=== PATIENT | male | born 1990 | race Caucasian/White ===

== ENCOUNTER 2017-05-01 19:00 | Emergency (ER) | payer SELFPAY ==
[~2017-05-01] VITALS: Ht 175.3 cm; Wt 90.9 kg
[2017-05-01 19:05] VITALS: TEMP 96.8
[2017-05-01 20:03] LABS: BASO # 0.1 (0.0-0.2); BASO % 0.7 % (0.0-2.0); EOS # 0.3 (0.0-0.7); EOS % 1.7 % (0-4.0); GRAN # 15.3 (1.4-6.5); GRAN % 83.1 % (42.2-75.2); HEMATOCRIT 49.9 % (42.0-52.0); HEMOGLOBIN 16.8 g/dl (13.5-18.0); LYMPH # 1.8 (1.2-3.4); LYMPH % 9.7 % (20.0-51.0); MEAN CELL VOLUME 92 fl (80.0-100.0); MEAN CORPUSCULAR HEMOGLOBIN 31 pg (27.0-31.0); MEAN CORPUSCULAR HGB CONC 34 g/dl (33.0-37.0); MEAN PLATELET VOLUME 10.6 fl (7.4-10.4); MONO # 0.8 (0.1-0.6); MONO % 4.1 % (1.7-9.3); PLATELET COUNT 282 K/mm3 (130-400); RED BLOOD COUNT 5.45 M/mm3 (4.20-5.60); REDCELL DISTRIBUTION WIDTH-CV 13.4 % (11.5-14.5)
[2017-05-01 20:12] LABS: ALANINE AMINOTRANSFERASE 33 U/L (21-72); ALBUMIN 4.8 gm/dL (3.5-5.0); ALKALINE PHOSPHATASE 66 U/L (50-136); ANION GAP 12 mmol/L (7-16); AST,SGOT 28 U/L (15-37); BILIRUBIN,TOTAL 1.2 mg/dL (0.0-1.0); BLOOD UREA NITROGEN 20 mg/dL (9-20); CALCIUM 9.4 mg/dL (8.4-10.2); CARBON DIOXIDE 25 mmol/L (22-30); CHLORIDE 103 mmol/L (98-107); CREATININE, serum 1.21 mg/dL (0.66-1.25); GLUCOSE 108 mg/dL (74-106); POTASSIUM 4.2 mmol/L (3.4-5.0); SODIUM 140 mmol/L (137-145); TOTAL PROTEIN 7.8 gm/dL (6.4-8.2)
[2017-05-01 20:16] LABS: ACETAMINOPHEN < 10 ug/mL (10-30); ALCOHOL(ethanol),MEDICAL < 10 mg/dL; SALICYLATE < 1.0 mg/dL
[2017-05-01 21:02] LABS: COLLECTION METHOD CLEAN CATCH
[2017-05-01 21:10] LABS: MUCOUS Present /lpf; PH 5 (5-8); URINE APPEARANCE Clear; URINE BACTERIA Rare /hpf; URINE BILIRUBIN Negative (NEGATIVE); URINE BLOOD Negative (NEGATIVE); URINE COLOR Yellow; URINE GLUCOSE Negative (NEGATIVE); URINE KETONE Trace (NEGATIVE); URINE LEUKOCYTE ESTERASE Trace (NEGATIVE); URINE NITRATE Negative (NEGATIVE); URINE PROTEIN(semi-quant) Negative (NEGATIVE)
[2017-05-01 21:19] LABS: TRICYCLIC ANTIDEPRESS URINE NEGATIVE
[2017-05-01 23:28] VITALS: BP 126/87; PULSE 79
== END 2017-05-01 23:30 | disposition short-term general hospital (02) ==
LOC: COL.ER 19:00
PROVIDERS: Emergency Medicine
DX: S22.088A Other fracture of T11-T12 vertebra, initial encounter for closed fracture (principal); S22.019A Unspecified fracture of first thoracic vertebra, initial encounter for closed fracture; M79.632 Pain in left forearm; R10.84 Generalized abdominal pain; F15.10 Other stimulant abuse, uncomplicated; N39.0 Urinary tract infection, site not specified; R40.2412 Glasgow coma scale score 13-15, at arrival to emergency department; F17.210 Nicotine dependence, cigarettes, uncomplicated; Z23 Encounter for immunization; X83.8XXA Intentional self-harm by other specified means, initial encounter; V48.6XXA Car passenger injured in noncollision transport accident in traffic accident, initial encounter; Y93.I9 Activity, other involving external motion; Y92.410 Unspecified street and highway as the place of occurrence of the external cause
CPT/HCPCS: J0696; J7030; Q9967

== ENCOUNTER 2018-08-17 16:49 | Emergency (ER) | payer OTHER ==
[~2018-08-17] VITALS: Ht 177.8 cm; Wt 90.9 kg
[2018-08-17 17:10] VITALS: BP 134/74; TEMP 96.8
[2018-08-17] MEDS ORDERED: TRIAMCINOLONE A15 G3 TP (17:23)
[2018-08-17 17:31] VITALS: PULSE 84
== END 2018-08-17 17:32 | disposition home or self-care (01) ==
LOC: COL.ER 16:49
DX: S40.862A Insect bite (nonvenomous) of left upper arm, initial encounter (principal); S40.861A Insect bite (nonvenomous) of right upper arm, initial encounter; S80.862A Insect bite (nonvenomous), left lower leg, initial encounter; S80.861A Insect bite (nonvenomous), right lower leg, initial encounter; S30.861A Insect bite (nonvenomous) of abdominal wall, initial encounter; F17.210 Nicotine dependence, cigarettes, uncomplicated; W57.XXXA Bitten or stung by nonvenomous insect and other nonvenomous arthropods, initial encounter

== ENCOUNTER 2018-12-19 15:23 | Emergency (ER) | payer OTHER ==
[~2018-12-19] VITALS: Ht 177.8 cm; Wt 98.6 kg
[~2018-12-19 15:23] MED LIST: TRIAMCINOLONE A15 G3 TP
[2018-12-19 15:43] VITALS: BP 132/73; PULSE 75; TEMP 98.8
== END 2018-12-19 16:12 | disposition left against medical advice (07) ==
LOC: COL.ER 15:23
DX: Z02.89 Encounter for other administrative examinations (principal); Z91.5 Personal history of self-harm

== ENCOUNTER 2019-01-16 06:44 | Emergency (ER) | payer SELFPAY ==
[~2019-01-16] VITALS: Ht 177.8 cm; Wt 99.5 kg
[2019-01-16 06:52] VITALS: TEMP 98.3
[2019-01-16 07:21] LABS: HEMATOCRIT 46.8 % (42.0-52.0); HEMOGLOBIN 15.6 g/dl (13.5-18.0); MEAN CELL VOLUME 91 fl (80.0-100.0); MEAN CORPUSCULAR HEMOGLOBIN 30 pg (27.0-31.0); MEAN CORPUSCULAR HGB CONC 33 g/dl (33.0-37.0); MEAN PLATELET VOLUME 10.4 fl (7.4-10.4); PLATELET COUNT 302 K/mm3 (130-400); RED BLOOD COUNT 5.13 M/mm3 (4.20-5.60); REDCELL DISTRIBUTION WIDTH-CV 13.7 % (11.5-14.5)
[2019-01-16 07:29] LABS: ALBUMIN 4.7 gm/dL (3.5-5.0); BILIRUBIN,TOTAL 1.8 mg/dL (0.0-1.0); CALCIUM 9.6 mg/dL (8.4-10.2); CREATININE, serum 1.18 (0.66-1.25); POTASSIUM 3.9 mmol/L (3.4-5.0); TOTAL PROTEIN 7.5 gm/dL (6.4-8.2)
[2019-01-16 07:54] LABS: BAND 8 % (0-10); EOSINOPHIL 3 % (0-4); LYMPHOCYTE 4 % (20.0-51.0); NEUTROPHILS 79 % (42.0-75.2)
[2019-01-16 07:56] LABS: PLATELET ESTIMATE NORMAL (NORMAL)
[2019-01-16] MEDS ORDERED: CEPHALEXIN500 M1 PO (08:40)
[2019-01-16 09:00] VITALS: BP 142/79; PULSE 92
== END 2019-01-16 09:00 | disposition home or self-care (01) ==
LOC: COL.ER 06:44
PROVIDERS: Emergency Medicine
DX: S31.110A Laceration without foreign body of abdominal wall, right upper quadrant without penetration into peritoneal cavity, initial encounter (principal); S00.83XA Contusion of other part of head, initial encounter; X99.9XXA Assault by unspecified sharp object, initial encounter
CPT/HCPCS: J7030; Q9967

== ENCOUNTER 2019-02-20 23:24 | Emergency (ER) | payer SELFPAY ==
[~2019-02-20] VITALS: Ht 177.8 cm; Wt 100.0 kg
[~2019-02-20 23:24] MED LIST changes: +CEPHALEXIN500 M1 PO
[2019-02-20 23:34] VITALS: BP 142/84; PULSE 70; TEMP 98.3
[2019-02-21 01:27] LABS: TRICYCLIC ANTIDEPRESS URINE NEGATIVE
== END 2019-02-21 01:45 | disposition home or self-care (01) ==
LOC: COL.ER 23:24
PROVIDERS: Physician Assistant
DX: Z02.83 Encounter for blood-alcohol and blood-drug test (principal)

== ENCOUNTER → 2019-11-30 | Emergency (ER) | payer SELFPAY | LOC: COL.ER 14:21 | DX: R69 Illness, unspecified (principal); Z53.21 Procedure and treatment not carried out due to patient leaving prior to being seen by health care provider ==

== ENCOUNTER 2020-04-05 21:55 | Inpatient (IN) | payer SELFPAY ==
[~2020-04-05] VITALS: Ht 167.6 cm; Wt 94.9 kg
[2020-04-05 22:19] LABS: BASO # 0.1 (0.0-0.2); BASO % 0.9 % (0.0-2.0); EOS # 0.2 (0.0-0.7); EOS % 1.8 % (0-4.0); GRAN # 8.5 (1.4-6.5); GRAN % 74.5 % (42.2-75.2); HEMATOCRIT 42.2 % (42.0-52.0); LYMPH # 1.6 (1.2-3.4); MEAN CELL VOLUME 91 fl (80.0-100.0); MEAN CORPUSCULAR HEMOGLOBIN 30 pg (27.0-31.0); MEAN CORPUSCULAR HGB CONC 33 g/dl (33.0-37.0); MEAN PLATELET VOLUME 10.6 fl (7.4-10.4); MONO % 8.5 % (1.7-9.3); PLATELET COUNT 269 K/mm3 (130-400); RED BLOOD COUNT 4.63 M/mm3 (4.20-5.60); REDCELL DISTRIBUTION WIDTH-CV 13.2 % (11.5-14.5)
[2020-04-05 22:26] LABS: INR 1.2 (0.8-3.0); PROTHROMBIN TIME 13.3 SECONDS (9.7-12.8)
[2020-04-05 22:29] LABS: ALANINE AMINOTRANSFERASE 29 U/L (4-49); ALBUMIN 4.3 gm/dL (3.5-5.0); ALKALINE PHOSPHATASE 63 U/L (50-136); ANION GAP 12 mmol/L (7-16); AST,SGOT 44 U/L (15-37); BILIRUBIN,TOTAL 1.1 mg/dL (0.0-1.0); BLOOD UREA NITROGEN 14 mg/dL (9-20); CALCIUM 8.7 mg/dL (8.4-10.2); CARBON DIOXIDE 24 mmol/L (22-30); CHLORIDE 101 mmol/L (98-107); CREATININE, serum 0.96 (0.66-1.25); GLUCOSE 104 mg/dL (74-106); LIPASE 37 U/L (23-300); POTASSIUM 3.4 mmol/L (3.4-5.0); SODIUM 138 mmol/L (137-145); TOTAL PROTEIN 7.2 gm/dL (6.4-8.2)
[2020-04-05 22:33] LABS: ALCOHOL(ethanol),MEDICAL < 10 mg/dL
[2020-04-05 22:42] LABS: TROPONIN-I < 0.012 ng/mL (0.000-0.035)
[2020-04-05] MEDS ORDERED: DEPAKOTE500 MG PO (23:34)
[2020-04-06] VITALS (794 sets, daily range): BP systolic 92–152; BP diastolic 54–95; PULSE 65–98; TEMP 97.6–98.3; O2SAT 85–100
[2020-04-06 00:41] LABS: COLLECTION METHOD CLEAN CATCH
[2020-04-06 00:51] LABS: MUCOUS Present /lpf; PH 5 (5-8); URINE APPEARANCE Clear; URINE BACTERIA None Seen /hpf; URINE BILIRUBIN Negative (NEGATIVE); URINE BLOOD Negative (NEGATIVE); URINE COLOR Yellow; URINE GLUCOSE Negative (NEGATIVE); URINE KETONE 2+ (NEGATIVE); URINE LEUKOCYTE ESTERASE Negative (NEGATIVE); URINE NITRATE Negative (NEGATIVE); URINE PROTEIN(semi-quant) Negative (NEGATIVE); URINE RBC 0-2 /hpf; URINE UROBILINOGEN Negative (NEGATIVE)
[2020-04-06 00:53] LABS: TRICYCLIC ANTIDEPRESS URINE NEGATIVE
--- NOTE | 2020-04-06 01:35 | NUR ---
Pt arrived to ICU room 4 via bed with PACU staff. Pt oreinted to room. Pt is resting quietly in the bed and he denies further needs. This nurse to remain at bedside.
--- NOTE | 2020-04-06 02:00 | NUR ---
Assessment complete. Pt is AXO X3 but he is drowsy after surgery. Denies having any pain at this time. Breathing is even and unlabored on room air. LH IV and RA IV both flush easily and remain free of complications. Dressing to R neck incision is CDI. Dressing to midline ABD is CDI. Dressing to ABD lap sites x2 are CDI. Pt is resting quietly in the bed at this time and he denies further needs. This nurse to remain at the bedside.
[2020-04-06 05:33] LABS: HEMATOCRIT 41.1 % (42.0-52.0); HEMOGLOBIN 13.7 g/dl (13.5-18.0)
[2020-04-06 05:45] LABS: CALCIUM 8.5 mg/dL (8.4-10.2); CREATININE, serum 0.9 (0.66-1.25); POTASSIUM 4.3 mmol/L (3.4-5.0)
--- NOTE | 2020-04-06 07:20 | NUR ---
Report given to LANCE Acevedo.
--- NOTE | 2020-04-06 07:30 | NUR ---
Officer Rigoberto with [employer] here to check on patient. Update given at this time and officer at bedside to speak with patient. Patient states continues with thoughts of self harm and states continues to hear voices. Room cleared of risks and belongings placed in locked cabinet. Cords zip tied.
--- NOTE | 2020-04-06 08:30 | NUR ---
RT notified for second time of need for IS, states "I'll get to it when I can, it's not a priority right now. Not like it's going to help things."
--- NOTE | 2020-04-06 08:30 | NUR ---
Dr. Pate here for rounds. At bedside and dressing removed from neck. Requests to leave [facility]NA. States considered medically cleared, ok to progress with [place] Screen and potential discharge today to mental health facility.
--- NOTE | 2020-04-06 09:39 | NUR ---
Spoke with Officer Rigoberto with [employer]. States spoke with his cold storage supervisor and patient doesn't need to be in [facility] at this time due cooperative nature and willingness to be screened. If patient becomes non compliant with care and/or refuses screen, then they will place in [facility].
--- NOTE | 2020-04-06 09:42 | NUR ---
RT here for IS. Patient asleep, RT encouraged to wake patient for IS but refuses at this time.
--- NOTE | 2020-04-06 10:12 | NUR ---
Spoke with [place] with [facility]. Requested records to be faxed; all printed and faxed at this time
--- NOTE | 2020-04-06 10:29 | NUR ---
SW staffed with nurse about patient. Patient is awaiting pysch screen. Patient is not on [facility] but will be if he does not comply with screens per officer. Patient is reported to be compliant at this time. WIll continue to follow for assessment.
[2020-04-06 12:22] LABS: HEMATOCRIT 40.2 % (42.0-52.0); HEMOGLOBIN 13.2 g/dl (13.5-18.0)
--- NOTE | 2020-04-06 13:41 | NUR ---
Rj with [facility] on phone. Zoom information given for session and patient see up with IPad.
--- NOTE | 2020-04-06 14:30 | NUR ---
Spoke with Rj at [facility]; patient agreeable to go voluntary inpatient pysch. Will call when placement found
--- NOTE | 2020-04-06 17:45 | NUR ---
Patient in bed, very tearful. States hearing voices. Lays in bed with hands over ears, in obvious distress. Dr. Pate called and orders recieved.
--- NOTE | 2020-04-06 18:25 | NUR ---
Angela with [facility] called and requested EKG be faxed over. She states attempting to place patient at and they are requesting records. She will call when they notify her.
--- NOTE | 2020-04-06 19:30 | NUR ---
Received report from LANCE Acevedo. All medications verified and all questions answered. Lacerations examined at bedside. Patient a&o x 4 in pleasant mood and cooperative with staff during report. VSS. Watching TV in bed. Will resume care at this time.
--- NOTE | 2020-04-06 20:45 | NUR ---
Received call from [facility], stated patient had a room available at [facility] and provided nurse with [facility] nurses direct phone number. Nurse contacted house furnishings supervisor at 529 that patient had a room available in [facility] and that secure transport was needed for patient. Jam called for secure transport.
--- NOTE | 2020-04-06 21:15 | NUR ---
Nurse spoke with LANCE Spencer at [facility] and gave report on patient. Johanna stated no additional documents were needed at this time other than the transfer paperwork. Stated all other paperwork had been faxed to facility early in the day.
--- NOTE | 2020-04-06 21:37 | NUR ---
Nurse called Dr. Loya and received verbal orders to transfer patient to inpatient rehab facility in [place]. Charge nurse witnessed phone call and nurse signed consent phone via verbal order for Dr. Loya.
--- NOTE | 2020-04-06 23:00 | NUR ---
The secure transport team arrived. Patient sent with belongings that had been locked up, patient stated he had all the belongings he came to the facility with. Patient stated he was still ok with voluntarily going to inpatient rehab at [place]. Patient transported out through ER via wheelchair. Patient left facility at 2315. LANCE Spencer at [facility] was notified of patient leaving facility.
== END 2020-04-06 23:15 | DRG 987 ==
LOC: COL.ER 21:55 → ICU 23:14
PROVIDERS: Emergency Medicine; ADMIT Surgery
PROC: 0JQ80ZZ Repair Abdomen Subcutaneous Tissue and Fascia, Open Approach (ICD-10-PCS; principal; 2020-04-05)
PROC: 0HQ4XZZ Repair Neck Skin, External Approach (ICD-10-PCS; 2020-04-05)
DX: S36.113A Laceration of liver, unspecified degree, initial encounter (principal); S31.619A Laceration without foreign body of abdominal wall, unspecified quadrant with penetration into peritoneal cavity, initial encounter; S11.91XA Laceration without foreign body of unspecified part of neck, initial encounter; F17.210 Nicotine dependence, cigarettes, uncomplicated; Z20.822 Contact with and (suspected) exposure to COVID-19; X78.1XXA Intentional self-harm by knife, initial encounter
CPT/HCPCS: A9284; J0690; J1100; J1885; J2405; J2704; J3010; J3475; J7120; Q9967

== ENCOUNTER 2020-07-24 00:32 | Emergency (ER) | payer SELFPAY ==
[~2020-07-24] VITALS: Ht 177.8 cm; Wt 100.0 kg
[~2020-07-24 00:32] MED LIST changes: +DEPAKOTE500 MG PO
[2020-07-24 00:57] VITALS: TEMP 97.6
[2020-07-24 02:34] VITALS: BP 119/79; PULSE 81
== END 2020-07-24 02:34 | disposition home or self-care (01) ==
LOC: COL.ER 00:32
DX: M25.532 Pain in left wrist (principal); M79.642 Pain in left hand; W01.0XXA Fall on same level from slipping, tripping and stumbling without subsequent striking against object, initial encounter
CPT/HCPCS: J1885

== ENCOUNTER 2020-10-06 14:33 | Emergency (ER) | payer OTHER ==
[~2020-10-06] VITALS: Ht 177.8 cm; Wt 100.0 kg
[2020-10-06 15:45] VITALS: BP 124/64; PULSE 88; TEMP 97.1
== END 2020-10-06 15:48 | disposition home or self-care (01) ==
LOC: COL.ER 14:33
DX: M79.642 Pain in left hand (principal); M25.532 Pain in left wrist; F17.210 Nicotine dependence, cigarettes, uncomplicated; Z20.822 Contact with and (suspected) exposure to COVID-19

== ENCOUNTER 2021-08-06 20:56 | Emergency (ER) | payer OTHER ==
[~2021-08-06] VITALS: Ht 177.8 cm; Wt 100.0 kg
[2021-08-06 21:02] VITALS: BP 144/93; PULSE 89; TEMP 97.1
== END 2021-08-06 21:33 | disposition left against medical advice (07) ==
LOC: COL.ER 20:56
DX: M25.532 Pain in left wrist (principal)

== ENCOUNTER 2021-09-07 10:57 | Emergency (ER) | payer OTHER ==
[2021-09-07 10:57] VITALS: PULSE 0
== END 2021-09-07 14:14 | disposition expired ==
LOC: COL.ER → EDBD 10:58 → COL.ER 14:14
DX: S80.211A Abrasion, right knee, initial encounter (principal); S80.212A Abrasion, left knee, initial encounter; I46.9 Cardiac arrest, cause unspecified; X58.XXXA Exposure to other specified factors, initial encounter
CPT/HCPCS: J0171